=== PATIENT | female | born 1980 | race Caucasian/White ===

== ENCOUNTER 2023-06-06 10:07 | Emergency (ER) | payer BC, MEDICAID, SELFPAY ==
--- NOTE | ~2023-06-06 | XR_ITS ---
EXAMINATION: XR ankle LT min 3V DATE: 06/06/2023 10:40 INDICATION: Left ankle pain TECHNIQUE: Anteroposterior, lateral, mortise, and additional oblique view of the ankle were obtained. COMPARISON: None. FINDINGS: There is ankle soft tissue swelling. Bone alignment is normal. There is no fracture. IMPRESSION: 1. Ankle soft tissue swelling without acute osseous abnormality. Reviewed, dictated and finalized at location L.
[2023-06-06 10:07] VITALS: BP 127/85; PULSE 82; RESP 16; TEMP 36.8; O2SAT 98
[2023-06-06 10:14] VITALS: BP 127/85; PULSE 82; RESP 16; TEMP 36.8; O2SAT 98
--- NOTE | 2023-06-06 10:19 | ED.LOWEXIN ---
HPI - Extremity Injury (Lower) General Chief Complaint: Extremity Injury, Lower Stated Complaint: left foot and ankle injury Time Seen by Provider: 06/06/23 10:11 Source: patient and RN notes reviewed Mode of arrival: wheelchair Limitations: no limitations History of Present Illness complaint: ankle injury Onset (ago): day(s) (last night) Injury: Left: ankle Type of Injury: inversion Place: home Severity: moderate Relieving factors: rest Exacerbating factors: weight bearing, movement and palpation Context: walking Associated symptoms: swelling and able to partially bear weight Other symptoms: none Treatments prior to arrival: cold therapy Related Data Home Medications Medication Instructions Recorded Confirmed celecoxib 200 mg capsule 200 mg PO DAILY 06/06/23 06/06/23 fluoxetine 40 mg capsule 40 mg PO DAILY 06/06/23 06/06/23 Allergies Allergy/AdvReac Type Severity Reaction Status Date / Time clindamycin Allergy Hives Verified 06/06/23 10:23 Review of Systems Review of Systems: All systems reviewed & are unremarkable except as noted in HPI and below PMFSH Past Medical History Medical History (Updated 06/06/23 @ 11:02 by Amadeo Heurta MD) Depression Surgical History Surgical History (Updated 06/06/23 @ 10:26 by Amadeo Huerta MD) History of carpal tunnel surgery Exam Const: General: healthy appearing, no acute distress and alert Nutritional Appearance: well nourished Orientation/consciousness: patient oriented x3 Limitations: no limitations HENMT: Head: normal to inspection Ears: external ears normal Face/Nose/Sinus: Normal external nose present Face and sinus: normal facial exam Mouth: Yes moist mucous membranes Eyes: Conjunctivae: conjunctivae normal Pupils: Equal, round and reactive pupils present EOM: EOMs intact bilaterally Neck: Neck: normal visual inspection Resp: Effort & Inspection: normal respiratory effort Auscultation: clear to auscultation bilaterally Cardio: Rate: regular rate Rhythm: regular rhythm GI: GI Palp: Yes Soft to palpation and No Tenderness to palpation present (GI) Auscultation: normal bowel sounds Back/Spine/Pelvis: Cervical Spine: cervical ROM normal Thoracic/Lumbar Spine: thoraco-lumbar ROM normal Skin: General skin exam: normal color Rashes: no rashes Neuro: General: patient oriented x3, moves all extremities, no focal motor deficits and CN's II-XI intact bilaterally Speech: normal speech Extrem: General: normal exam except as noted and no clubbing, cyanosis or edema Left lower extremity: ankle Details: tenderness Location: of the lateral malleolus and of the anterior talofibular ligament, swelling Details: laterally and anteriorly and abnormal ROM Details: pain with active ROM Details: with plantar flexion, with dorsiflexion and with inversion and pain with passive ROM Details: with plantar flexion, with dorsiflexion and with inversion; no crepitus Psych: Mental Status: mental status grossly normal Affect: normal affect Attitude: cooperative Course Vital Signs Vital signs: Vital Signs Temperature 36.8 C 06/06/23 10:07 Pulse Rate 82 06/06/23 10:07 Respiratory Rate 16 06/06/23 10:07 Blood Pressure 127/85 06/06/23 10:07 Pulse Oximetry 98 06/06/23 10:07 Oxygen Delivery Room Air 06/06/23 10:07 Temperature 36.8 C 06/06/23 10:14 Pulse Rate 82 06/06/23 10:14 Respiratory Rate 16 06/06/23 10:14 Blood Pressure 127/85 06/06/23 10:14 Pulse Oximetry 98 06/06/23 10:14 Oxygen Delivery Room Air 06/06/23 10:14 MDM - Extremity Injury (Lower) Differential Diagnosis Differential diagnosis: Likely ankle sprain and strain, ankle fracture and other ( foot fracture ruled out by exam) Discharge Plan Discharge Clinical Impression: Ankle sprain and strain Patient Disposition: Home, Self-Care Condition: Stable Instructions: Ankle Sprain (ED) Additional Instructions: use Tylenol and or Motrin a
[2023-06-06 11:15] VITALS: BP 127/85; PULSE 82; RESP 16; TEMP 36.8; O2SAT 98
== END 2023-06-06 11:17 | disposition home or self-care (01) ==
PROVIDERS: Emergency Provider Emergency Medicine
DX: S93.402A Sprain of unspecified ligament of left ankle, initial encounter (principal); S96.912A Strain of unspecified muscle and tendon at ankle and foot level, left foot, initial encounter; X50.9XXA Other and unspecified overexertion or strenuous movements or postures, initial encounter; Y92.009 Unspecified place in unspecified non-institutional (private) residence as the place of occurrence of the external cause
CPT/HCPCS: 29515; 73610; 99283; L4350

== ENCOUNTER 2023-09-27 10:24 | Outpatient (CLI) | payer BC, MEDICAID, SELFPAY ==
--- NOTE | ~2023-09-27 | MM_ITS ---
EXAMINATION: MM scrn freeman implant BI w amarilys HISTORY: Baseline screening mammogram TECHNIQUE: Craniocaudal and mediolateral oblique 3-D tomosynthesis images with implant displacement a nd synthetic 2-D images were generated. Craniocaudal and mediolateral oblique views of the breasts wi thout implant displacement were obtained using full field digital mammography. CAD analysis was submi tted and interpreted. COMPARISON: None, baseline BREAST PARENCHYMAL COMPOSITION: The breasts are heterogeneously dense, which may obscure small masses . FINDINGS: RIGHT BREAST: There are asymmetries in the posterior third of the upper breast 7.5 cm from the nipple and in the posterior third of the lower breast 4 cm from the nipple on the implant displaced mediola teral oblique view. LEFT BREAST: There is no evidence of suspicious mass, calcification, or architectural distortion to s uggest malignancy. IMPRESSION: 1. Right breast asymmetries. 2. Additional mammographic views and possible breast ultrasound are recommended. BI-RADS Category 0: Incomplete: Needs additional imaging evaluation. Reviewed, dictated and finalized at location A. [employer]ICER IMPRESSION: 1. Right breast asymmetries. 2. Additional mammographic views and possible breast ultrasound are recommended . BI-RADS Category 0: Incomplete: Needs additional imaging evaluation.
== END 2023-09-27 10:25 | disposition home or self-care (01) ==
PROVIDERS: PCP Nurse Practitioner Family; Visit Provider Nurse Practitioner Family
DX: Z12.31 Encounter for screening mammogram for malignant neoplasm of breast (principal); R92.8 Other abnormal and inconclusive findings on diagnostic imaging of breast
CPT/HCPCS: 77063; 77067

== ENCOUNTER 2023-10-13 10:14 | Outpatient (CLI) | payer BC, MEDICAID, SELFPAY ==
--- NOTE | ~2023-10-13 | MMUS_ITS ---
EXAMINATION: MM diag freeman implant RT w amarilys, US breast RT complete HISTORY: Follow-up right breast asymmetry TECHNIQUE: Additional 3-D tomosynthesis images of the right breast were performed and synthetic 2-D i mages were generated. CAD analysis was submitted and interpreted. High resolution complete right [address] st ultrasound was performed. COMPARISON: 09/27/2023 BREAST PARENCHYMAL COMPOSITION: The breasts are heterogeneously dense, which may obscure small masses FINDINGS: MAMMOGRAPHIC FINDINGS: The focal asymmetry superiorly and inferiorly on MLO view are not visualized on spot MLO or mediolate ral views, likely superimposed fibroglandular tissue. ULTRASOUND: Complete US of all 4 quadrants of the right breast and retroareolar region was reviewed. At 6:00, 4 c m from the nipple there is an oval hypoechoic 3 mm mass with low level internal echoes, no posterior features, parallel orientation and no internal vascularity. At 10:00, 8 cm from the nipple there is a 4 mm cyst. At 10:00, 12 cm from the nipple there is a 5 mm intramammary lymph node. IMPRESSION: 1. Probable benign complicated cyst of the right breast at 6:00, 4 cm from the nipple. 2. 6 month interval limited right breast ultrasound recommended. BI-RADS category 3, probably benign findings. Reviewed, dictated and finalized at location A. [employer] IMPRESSION: 1. Probable benign complicated cyst of the right breast at 6:00, 4 cm from the nipple. 2. 6 month interval limited right breast ultrasound recommended. BI-RADS category 3, probably benign findings.
== END 2023-10-13 10:15 | disposition home or self-care (01) ==
LOC: CHSIMG 10:16
PROVIDERS: PCP Nurse Practitioner Family; Visit Provider Nurse Practitioner Family
DX: R92.8 Other abnormal and inconclusive findings on diagnostic imaging of breast (principal)
CPT/HCPCS: 76641; 77061; 77065; G0279

== ENCOUNTER 2024-03-18 20:44 | Emergency (ER) | payer MEDICAID, SELFPAY ==
[2024-03-18 20:45] VITALS: BP 137/67; PULSE 74; RESP 20; TEMP 37; O2SAT 95
--- NOTE | 2024-03-18 20:59 | ECG_ITS ---
SEE SCANNED COPY FOR CONFIRMED REPORT MTDD
--- NOTE | 2024-03-18 21:00 | PC.NURSE ---
ERP and x2 nurses in to talk c pt about POC and need for blood work. Pt refusing blood work and wanting to talk to Francisco. Explained in detail to pt about POC and need for evaluation and need for cooperation to make exam and process to go smoother and less difficult. After speaking c pt about protocol and that a sitter will be by side for protection purposes, pt is agreeable to POC and cooperative at this time.
[2024-03-18 21:15] LABS: Appearance Urine Clear (Clear); Basophils Absolute Auto 0.12 K/mm3 (0.00-0.10); Basophils Percent Auto 0.9 % (0.0-1.0); Bilirubin Urine Negative (Negative); Blood Urine 3+ (Negative); Color Urine Light Yellow (Yellow); Eosinophils Absolute Auto 0.17 K/mm3 (0.02-0.50); Eosinophils Percent Auto 1.3 % (1.0-6.0); Glucose Urine UA Negative (Negative); Hematocrit 41.8 % (35.0-49.0); Hemoglobin 14.2 g/dL (12.0-15.0); Immature Granulocyte Absolute 0.05 K/mm3 (0.00-0.00); Immature Granulocyte Percent A 0.4 % (0.0-0.0); Ketones Urine Negative (Negative); Leukocyte Esterase Ur Negative LEU/UL (Negative); Lymphocytes Absolute Auto 4.01 K/mm3 (1.10-4.50); Lymphocytes Percent Auto 30.2 % (18.0-42.0); Mean Corpuscular Hemoglobin 34.1 pg (27.0-31.0); Mean Corpuscular Volume 100.5 fL (78.0-102.0); Mean Platelet Volume 8.9 fl (9.2-11.8); Monocytes Absolute Auto 1.06 K/mm3 (0.10-0.90); Neutrophils Absolute Auto 7.87 K/mm3 (1.70-7.20); Neutrophils Percent Auto 59.2 % (50.0-70.0); Nitrate Urine Negative (Negative); Platelet Count Result 251 K/mm3 (150-420); Protein Urine Negative (Negative); Red Blood Count 4.16 M/mm3 (4.20-5.40); Red Cell Distribution Width 13.7 % (11.6-14.4); Specific Grav Ur <= 1.005 (1.010-1.020); Urobilinogen Urine 0.2 mg/dL (0.2-1.0); White Blood Count 13.3 K/mm3 (4.8-10.8)
[2024-03-18 21:24] LABS: Amphetamine Screen Urine Negative (Negative); Barbiturate Screen Urine Negative (Negative); Benzodiazepines Screen Urine Negative (Negative); Cannabinoid Screen Urine Negative (Negative); Cocaine Screen Urine Positive (Negative); Methadone Screen Urine Negative (Negative); Opiate Screen Urine Negative (Negative); Phencyclidine Screen Urine Negative (Negative)
[2024-03-18 21:25] LABS: Add Urine Microscopic? YES
[2024-03-18 21:26] LABS: Bacteria Urine 2+ /hpf; Squamous Epithelial Cell Urine Rare /hpf (Few); WBC Urine 0-3 /hpf (0-3)
--- NOTE | 2024-03-18 21:26 | PC.NURSE ---
Pts father here and wanting to see pt. Pt informed her father is here but she wishes to not speak to anyone but Francisco. Father informed of pts wishes, he left building. Sitter remains at pt bedside per protocol.
[2024-03-18 21:41] LABS: Alanine Aminotransferase 47 U/L (14-59); Albumin Level 4.1 g/dL (3.4-5.0); Alkaline Phosphatase 70 U/L (46-116); Anion Gap 14 mmol/L (4-12); Aspartate Amino Transferase 36 U/L (15-37); Bilirubin,Total 0.6 mg/dL (0.00-1.00); Blood Urea Nitrogen 8 mg/dL (7-18); Calcium 9.5 mg/dL (8.5-10.1); Carbon Dioxide 27 mmol/L (21-32); Chloride 99 mmol/L (98-108); Estimated CRCL calculation 59 ml/min; Estimated Glomerular Filt Rate 54; Glucose 79 mg/dL (70-99); Osmolality Calculated 287 mOsm/kg (285-295); Sodium 140 mmol/L (136-145); Total Protein 7.9 g/dL (6.4-8.2)
[2024-03-18 21:42] LABS: Ethanol 227 mg/dL (0-6)
--- NOTE | 2024-03-18 21:42 | PC.NURSE ---
Pts s/o. Francisco here to see pt. Pt is ok and wanting him to come in to stay c her at this time. Pts s.o./spouse brought back to room to stay c pt.
[2024-03-18 21:43] LABS: Thyroid Stimulating Hormone Reflex 1.17 u/IU/mL (0.36-3.74)
--- NOTE | 2024-03-18 22:00 | PC.NURSE ---
Pt and s.o. informed on POC to redraw blood alcohol level around 0400 before mental health will come to evaluate pt. Pt sitting on bed c s.o. at bedside, cooperative and calm at this time. SItter remains at bedside.
[2024-03-18 22:22] LABS: SARS-CoV-2 Ag Negative (Negative)
--- NOTE | 2024-03-18 22:45 | ED.PSYCH ---
HPI - Psych General Chief Complaint: Psychiatric Symptoms Stated Complaint: Possible Psychiatric Evaluation Time Seen by Provider: 03/18/24 20:52 Source: patient and EMS Mode of arrival: EMS Limitations: no limitations History of Present Illness HPI Narrative: This is a 43-year-old female that presents via EMS after she had attempted suicide after cutting her right wrist was superficial laceration but her was concerned that there was quite a bit of blood and the patient was hiding under bed. Patient has some similar history and has a history of depression and currently on Prozac otherwise patient is tearful. No chest pain no shortness of breath no fever chills no nausea vomiting or abdominal pain. complaint: suicidal ideation and feels depressed Onset (ago): hour(s) Duration: constant History of same: Yes Related Data Home Medications Medication Instructions Recorded Confirmed fluoxetine 40 mg capsule (Prozac) 60 mg PO DAILY 06/06/23 03/18/24 Allergies Allergy/AdvReac Type Severity Reaction Status Date / Time clindamycin Allergy Hives Verified 06/06/23 10:23 Review of Systems Review of Systems: All systems reviewed & are unremarkable except as noted in HPI and below PMFSH Past Medical History Medical History Depression Surgical History Surgical History History of carpal tunnel surgery Social History Social History Substance use type: does not use Exam Const: General: no acute distress Nutritional Appearance: well nourished Orientation/consciousness: patient oriented x3 HENMT: Head: normal to inspection Eyes: Conjunctivae: conjunctivae normal Chest: Chest palpation & inspection: normal inspection of the chest Resp: Effort & Inspection: normal respiratory effort Auscultation: clear to auscultation bilaterally Cardio: Rate: regular rate Rhythm: regular rhythm Back/Spine/Pelvis: Back: no CVA tenderness Skin: General skin exam: normal color Wounds: wounds noted Other: Superficial cut on her right wrist currently not bleeding. Neuro: General: patient oriented x3, moves all extremities and no meningeal signs Psych: Affect: Sad affect present Course Course Emergency Course: Labs performed and reviewed alcohol level at 277 will repeat alcohol level at 5 in the morning the rest of her blood work is unremarkable. Patient's urinary drug screen is positive for cocaine. The patient usually takes Prozac 60mg at night and administered a dose here in the emergency department. Potassium level at 3.0 lead administer a dose of p.o. potassium. Mental health evaluation will set up outpatient counseling and patient medical cleared for discharge. Vital Signs Vital signs: Vital Signs Temperature 37.0 C 03/18/24 20:45 Pulse Rate 74 03/18/24 20:45 Respiratory Rate 20 03/18/24 20:45 Blood Pressure 137/67 03/18/24 20:45 Pulse Oximetry 95 03/18/24 20:45 Oxygen Delivery Room Air 03/18/24 20:45 Temperature 36.6 C 03/19/24 04:51 Pulse Rate 84 03/19/24 04:51 Respiratory Rate 18 03/19/24 04:51 Blood Pressure 128/74 03/19/24 04:51 Pulse Oximetry 98 03/19/24 04:51 Oxygen Delivery Room Air 03/19/24 04:51 MDM - Psych Lab Data 03/18/24 21:06 03/18/24 21:06 Labs: Lab Results 03/18/24 03/18/24 03/19/24 Range/Units 20:59 21:06 02:06 WBC 13.3 H (4.8-10.8) K/mm3 RBC 4.16 L (4.20-5.40) M/mm3 Hgb 14.2 (12.0-15.0) g/dL Hct 41.8 (35.0-49.0) % MCV 100.5 (78.0-102.0) fL MCH 34.1 H (27.0-31.0) pg MCHC 34.0 (32-36) g/dL RDW 13.7 (11.6-14.4) % Plt Count 251 (150-420) K/mm3 MPV 8.9 L (9.2-11.8) fl Immature Gran % (Auto) 0.4 H (0.0-0.0) % Neut % (Auto) 59.2 (50.0-70.0) % Lymph % (Auto)
[2024-03-18] MEDS: POTASSIUM BICARBONATE 25 MEQ TABEF 50 MEQ PO (22:59)
--- NOTE | 2024-03-18 23:00 | PC.NURSE ---
Pt given sandwich tray and water jug to drink per request.
[2024-03-18] MEDS: FLUoxetine HCL 10 MG CAPSULE 60 MG PO (23:04)
--- NOTE | 2024-03-18 23:06 | PC.NURSE ---
Pt given Prozac per order, states she takes it at bedtime. Pt cooperative c care at this time. S.O. remains at bedside and staying c pt tonight. Pt is calm and cheerful when s.o. is in room. VSS, lights dimmed, sitter remains at bedside per protocol.
[2024-03-18 23:08] VITALS: BP 132/78; PULSE 80; RESP 18; TEMP 36.6; O2SAT 98
--- NOTE | 2024-03-19 00:25 | PC.NURSE ---
Pt and s/o lying in bed trying to sleep. Sitter remains at beside.
[2024-03-19 01:48] VITALS: BP 130/65; PULSE 74; RESP 18; TEMP 36.6; O2SAT 99
--- NOTE | 2024-03-19 02:00 | PC.NURSE ---
Pt up using BR, pt re-evaluated on Lynch scale and she reports no intentions at this time of SI. She states she has had some events that occurred earlier that led her to feel sad and depressed causing the events. She is agreeable to staying and talking c mental health for evaluation. ERP informed of pt low risk per columbia scale, will keep sitter at bedside at this time until eval by mental health.
[2024-03-19 02:20] LABS: Ethanol 94 mg/dL (0-6)
--- NOTE | 2024-03-19 02:26 | PC.NURSE ---
Pt cleared for mental health eval. Call placed to [facility] and spoke to Yuly, report given to counselor, she will come for pt eval.
--- NOTE | 2024-03-19 02:53 | PC.NURSE ---
Pt awake c s/o at bedside again. Update given to pt and s/o about time of arrival for mental health pulling unit floorhand for eval and that she can't leave until talking c counselor. Pt and s/o stated understanding. Pt and s/o lying back down in bed to rest, sitter remains at bedside at this time.
--- NOTE | 2024-03-19 04:41 | PC.NURSE ---
Yuly completed eval w/ pt. ERP Dr Aponte notified of report and POC for safety contract signed by pt. Pt has instructions from [facility] to f/u today and will have o/p counseling set-up for her. Pt is agreeable to plan.
[2024-03-19 04:51] VITALS: BP 128/74; PULSE 84; RESP 18; TEMP 36.6; O2SAT 98
== END 2024-03-19 04:51 | disposition home or self-care (01) ==
PROVIDERS: Emergency Provider Emergency Medicine
DX: F32.A Depression, unspecified (principal); S61.511A Laceration without foreign body of right wrist, initial encounter; T14.91XA Suicide attempt, initial encounter; X78.9XXA Intentional self-harm by unspecified sharp object, initial encounter; F14.90 Cocaine use, unspecified, uncomplicated; Y90.8 Blood alcohol level of 240 mg/100 ml or more; Z11.52 Encounter for screening for COVID-19
CPT/HCPCS: 36415; 80053; 80307; 81001; 84443; 85025; 87426; 93005; 99284; A9270